=== PATIENT | male | born 1975 | race Caucasian/White ===

== ENCOUNTER 2021-02-06 12:17 | Emergency (ER) | payer SELFPAY ==
--- NOTE | 2021-02-06 12:52 | EDM.PDOC ---
ED HPI GENERAL MEDICAL PROBLEM - General Chief Complaint: General Stated Complaint: MED REFIL Time Seen by Provider: 02/06/21 12:27 Source of Information: Reports: Patient, RN Notes Reviewed History Limitations: Reports: No Limitations - History of Present Illness INITIAL COMMENTS - FREE TEXT/NARRATIVE: Patient is a 46-year-old male presenting to the emergency department to obtain a refill on his Celexa. He has been without it for 2 days. Reports he is prescribed 40 mg twice daily, however maximum recommended dosing is 40 mg once daily. He reports that he did not notice any additional benefit when he increased from 40 mg once daily to twice daily. I will write a prescription for 40 mg daily for 1 month. Recommended he schedule in the clinic to establish care with primary care for ongoing monitoring. He verbalized understanding of this. Discharge instructions as documented. - Related Data Allergies Allergy/AdvReac Type Severity Reaction Status Date / Time Penicillins Allergy Severe Hives Verified 02/06/21 12:29 Sulfa (Sulfonamide Allergy Severe Stomach Verified 02/06/21 12:29 Antibiotics) Upset Home Meds: Home Meds Citalopram Hydrobromide [Celexa] 40 mg PO BID 02/06/21 [History] Citalopram Hydrobromide [Celexa] 40 mg PO DAILY #30 tablet 02/06/21 [Rx] Past Medical History Cardiovascular History: Reports: Hypertension - Past Surgical History Male Surgical History: Reports: Vasectomy Social & Family History - Tobacco Use Tobacco Use Status *Q: Never Tobacco User - Caffeine Use Caffeine Use: Reports: Energy Drinks - Recreational Drug Use Recreational Drug Use: No ED ROS GENERAL - Review of Systems Review Of Systems: Comprehensive ROS is negative, except as noted in HPI. ED EXAM, GENERAL - Physical Exam Exam: See Below General Appearance: Alert, WD/WN, No Apparent Distress Respiratory/Chest: No Respiratory Distress, Lungs Clear, Normal Breath Sounds, No Accessory Muscle Use, Chest Non-Tender Cardiovascular: Normal Peripheral Pulses, Regular Rate, Rhythm, No Edema, No Gallop, No JVD, No Murmur, No Rub Neurological: Alert, Oriented, CN II-XII Intact, Normal Cognition, Normal Gait, Normal Reflexes, No Motor/Sensory Deficits Psychiatric: Normal Affect Skin Exam: Warm, Dry, Intact, Normal Color, No Rash Course - Vital Signs Last Recorded V/S: Last Vital Signs Temp 96.9 F 02/06/21 12:26 Pulse 96 02/06/21 12:26 Resp 16 02/06/21 12:26 BP 161/104 H 02/06/21 12:26 Pulse Ox 100 02/06/21 12:26 - Re-Assessments/Exams Free Text/Narrative Re-Assessment/Exam: Patient is a 46-year-old male presenting to the emergency department for refill on his Celexa. Reports that he was taking 40 mg twice daily for the last 2 months, however he did not notice any additional benefit after he increased from once daily. The maximum daily recommended doses for this medication is 40 mg/day. I will write prescription for 40 mg daily for the next 30 days. Recommend he establish care in the clinic with primary care for follow-up. Discharge instructions as documented. Departure - Departure Time of Disposition: 12:51 Disposition: Home, Self-Care 01 Condition: Good Clinical Impression: Anxiety - Discharge Information *PRESCRIPTION DRUG MONITORING PROGRAM REVIEWED*: No *COPY OF PRESCRIPTION DRUG MONITORING REPORT IN PATIENT VEGA: No Prescriptions: Citalopram Hydrobromide [Celexa] 40 mg PO DAILY #30 tablet Instructions: Managing Anxiety, Adult Referrals: PCP,None [Primary Care Provider] - Forms: ED Department Discharge Additional Instructions: You were seen in the emergency department today for refill on your Celexa prescription. Celexa 40 mg daily has been sent to your pharmacy. Take this medication as prescribed. Recommend that you establish care in the clinic with primary care provider for ongoing monitoring and refills. Return to ER as needed. Sepsis Event Note (ED) - Evaluation Sepsis Screening Result: No Definite Risk - Focused Exam Vital Signs: Vital Signs Temp Pulse Resp BP Pulse Ox 02/06/21 12:26 96.9 F 96 16 161/104 H 100
== END 2021-02-06 13:09 | disposition home or self-care (01) ==
LOC: JD.ED 12:17
DX: F41.9 Anxiety disorder, unspecified (principal); I10 Essential (primary) hypertension; Z76.0 Encounter for issue of repeat prescription; Z88.0 Allergy status to penicillin; Z88.2 Allergy status to sulfonamides
CPT/HCPCS: 99281